=== PATIENT | female | born 1990 | race Two or more races ===

== ENCOUNTER → 2019-05-09 06:28 | Outpatient (CLI) | payer OTHER | END | disposition home or self-care (01) | LOC: LAB 06:28 | DX: Z80.3 Family history of malignant neoplasm of breast (principal); D57.3 Sickle-cell trait; D50.8 Other iron deficiency anemias; N93.8 Other specified abnormal uterine and vaginal bleeding; D68.0 Von Willebrand disease; D68.8 Other specified coagulation defects; D51.8 Other vitamin B12 deficiency anemias; D51.1 Vitamin B12 deficiency anemia due to selective vitamin B12 malabsorption with proteinuria; D55.0 Anemia due to glucose-6-phosphate dehydrogenase [G6PD] deficiency; I10 Essential (primary) hypertension ==

== ENCOUNTER → 2019-07-23 10:12 | Outpatient (CLI) | payer OTHER | END | disposition home or self-care (01) | LOC: LAB 10:12 | DX: D68.0 Von Willebrand disease (principal); D68.8 Other specified coagulation defects; D57.3 Sickle-cell trait; D50.8 Other iron deficiency anemias; Z80.3 Family history of malignant neoplasm of breast ==